=== PATIENT | male | born 1975 | race African-American/Black ===

== ENCOUNTER 2018-10-04 15:09 | Emergency (ER) | payer BC ==
--- NOTE | 2018-10-04 21:35 | RAD ---
LEFT SHOULDER THREE VIEWS: 10/04/18 No acute fracture was seen. The AC joint is slightly wide but not off-set. There is irregularity at t he base of the acromion process suggesting that there have been old trauma here. There is some osteop hytes on the anterior aspect of the AC joint. There is some bony spurring at the attachment of the co racoclavicular ligaments to the distal clavicle, also suggestive of old trauma. There is no dislocati on. One sees a small sliver of bone along the outer aspect of the great tubercle. This is either from old trauma in this location or calcific tendinitis. IMPRESSION: 1. Old traumatic changes involving the acromion and AC joint. 2. Small sliver of bone or calcification along side the greater tubercle suggestive of either ol d trauma or calcific tendonitis. POS: HOME
== END 2018-10-04 15:55 | disposition home or self-care (01) ==
LOC: BURERS 15:09
DX: M25.512 Pain in left shoulder (principal); I10 Essential (primary) hypertension; J45.909 Unspecified asthma, uncomplicated; E78.5 Hyperlipidemia, unspecified
CPT/HCPCS: 93005

== ENCOUNTER → 2018-10-06 | Emergency (ER) | payer BC ==
[~2018-10-06] MED LIST: Ketorolac Tromethamine 60 MG/2 ML VIAL ONE; methylPREDNISolone Sod Succ/PF 125 MG/2 ML VIAL ONE
== END ==
LOC: BURERS 00:27
DX: M54.12 Radiculopathy, cervical region (principal); J45.909 Unspecified asthma, uncomplicated; E78.5 Hyperlipidemia, unspecified; Z79.899 Other long term (current) drug therapy
CPT/HCPCS: 96372; J1885; J2930

== ENCOUNTER 2019-11-22 19:50 | Emergency (ER) | payer BC | END 2019-11-22 20:47 | disposition home or self-care (01) | LOC: BURERS 19:50 | DX: S91.302A Unspecified open wound, left foot, initial encounter (principal) | CPT/HCPCS: 99282 ==

== ENCOUNTER 2020-07-01 18:41 | Emergency (ER) | payer BC ==
[2020-07-01 19:12] LABS: Bilirubin Small (Negative); Blood, Urine Large (Negative); Glucose, Urine (Dipstick) Negative (Negative); Ketone, Urine Trace mg/dL (Negative); Leukocyte Trace (Negative); Nitrite Positive (Negative); Protein, Urine (Dipstick) > or equal to 300 mg/dL (Neg-Trace)
[2020-07-01 19:15] LABS: Clarity Cloudy (Clear); Specific Gravity, Urine 1.032 (1.002-1.036)
[2020-07-01 19:16] LABS: Bacteria/HPF Rare-Few HPF (None Seen); RBC/HPF Greater than 50 HPF (0-3); Sperm/HPF 2+ HPF (None Seen); Squamous Epithelial 0-3 HPF (0-3); WBC/HPF 21-50 HPF (0-3)
[2020-07-01] MEDS ORDERED: Cephalexin 250 MG CAP ONE (20:33)
== END 2020-07-01 20:37 | disposition home or self-care (01) ==
LOC: BURERS 18:41
DX: N39.0 Urinary tract infection, site not specified (principal); E66.01 Morbid (severe) obesity due to excess calories; K21.9 Gastro-esophageal reflux disease without esophagitis; E78.5 Hyperlipidemia, unspecified; E78.00 Pure hypercholesterolemia, unspecified; I10 Essential (primary) hypertension; J45.909 Unspecified asthma, uncomplicated; Z79.899 Other long term (current) drug therapy; Z79.01 Long term (current) use of anticoagulants
CPT/HCPCS: 81003; 81015; 87077; 87086; 87186; 99283